=== PATIENT | female | born 2000 | race Caucasian/White ===

== ENCOUNTER 2019-12-29 18:11 | Emergency (ER) | payer OTHER ==
[2019-12-29 18:11] VITALS: BP 148/83
[2019-12-29] MEDS ORDERED: ONDANSETRON PF 4 MG/2 ML VIAL. ONE (18:42)
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
[2019-12-29] MEDS ORDERED: ONDANSETRON PF 4 MG/2 ML VIAL. IVP ONE (19:00)
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
[2019-12-29] MEDS ORDERED: MORPHINE SULFATE 10 MG/ML VIAL. IV ONE (19:30)
--- NOTE | 2019-12-29 20:41 | RAD ---
ELBOW LEFT 2V DATE: 12/29/2019 6:41 PM INDICATION: Reason: pain / Spl. Instructions: / History: COMPARISON: None. FINDINGS: Bones: There is no evidence of acute fracture or dislocation. Joints: The joint spaces are normal. There is no joint effusion. Miscellaneous: None. IMPRESSION: No evidence of acute fracture. Electronically signed by: Andrés Aj MD (12/29/2019 8:38 PM) JULIANA
[2019-12-29] MEDS ORDERED: KETOROLAC 30 MG/ML VIAL. IVP ONE (21:45)
[2019-12-29] MEDS ORDERED: diazePAM 5 MG TABLET PO ONE (21:45)
[2019-12-29] MEDS ORDERED: SUMA25TA4 PO (22:10)
[2019-12-29] MEDS ORDERED: METH-38 PO (22:10)
[2019-12-29] MEDS ORDERED: ONDA4TAB7 PO (22:10)
[2019-12-30] MEDS ORDERED: IOHEXOL 300 MG/ML 100ML VIAL. IV ONE (04:00)
[2019-12-30] MEDS ORDERED: CONTRAST GIVEN. MC PRN (04:15)
--- NOTE | 2019-12-30 08:23 | EKG ---
[facility] [address] [place] [address] Test Date: 2019-12-29 Test Time: 18:22:23 Pat Name: JOY ALEXANDER Department: Room: Gender: F [employer] Furnace Installer: : 2000 Requested By: RE HERNANDES Order Number: [id number] Reading MD: Measurements Intervals [place] Rate: 87 P: 38 FL: 152 QRS: 43 QRSD: 78 T: 49 QT: 372 QTc: 448 Interpretive Statements SINUS RHYTHM NO SPECIFIC ECG ABNORMALITIES RI6.02 No previous ECG available for comparison
== END 2019-12-29 22:17 | disposition home or self-care (01) ==
LOC: ER 18:11
DX: S01.112A Laceration without foreign body of left eyelid and periocular area, initial encounter (principal); R51 Headache; M54.2 Cervicalgia; R07.89 Other chest pain; M25.532 Pain in left wrist; V98.8XXA Other specified transport accidents, initial encounter; Y93.89 Activity, other specified; Y92.413 State road as the place of occurrence of the external cause; Y99.8 Other external cause status
CPT/HCPCS: 70450; 71260; 72125; 73070; 74177; 93005; 96374; 96375; 99285; J1885; J2270; J2405; Q9967